=== PATIENT | female | born 1985 | race Asian ===

== ENCOUNTER 2018-11-07 14:16 | Observation (INO) | payer OTHER ==
[~2018-11-07] VITALS: Ht 154.9 cm; Wt 55.8 kg
[2018-11-07] MEDS ORDERED: FERR-252 PO (16:02)
[2018-11-07] MEDS ORDERED: PREN-380 PO (16:02)
== END 2018-11-07 16:10 | disposition home or self-care (01) ==
LOC: MLD 14:16 → MUS 14:16 → EDSTATUS 14:38
PROVIDERS: ADMIT Obstetrics & Gynecology
DX: O99.89 Other specified diseases and conditions complicating pregnancy, childbirth and the puerperium (principal); Z3A.34 34 weeks gestation of pregnancy
CPT/HCPCS: 76815; G0378; Q0092; 59025

== ENCOUNTER 2018-11-14 15:28 | Observation (INO) | payer OTHER ==
[~2018-11-14] VITALS: Ht 154.9 cm; Wt 45.4 kg
[~2018-11-14 15:28] MED LIST: FERR-252 PO; PREN-380 PO
[2018-11-14 15:50] VITALS: BP 93/59
[2018-11-14] MEDS ORDERED: OMEG1CAP21 PO (16:04)
== END 2018-11-14 16:45 | disposition home or self-care (01) ==
LOC: MLD 15:28
PROVIDERS: ADMIT Obstetrics & Gynecology; ATTEND Obstetrics & Gynecology
DX: O99.89 Other specified diseases and conditions complicating pregnancy, childbirth and the puerperium (principal); N13.30 Unspecified hydronephrosis; Z3A.36 36 weeks gestation of pregnancy
CPT/HCPCS: 59025; 76815; G0378; Q0092

== ENCOUNTER 2018-11-19 04:00 | Observation (INO) | payer OTHER ==
[~2018-11-19] VITALS: Ht 154.9 cm; Wt 58.1 kg
[~2018-11-19 04:00] MED LIST changes: +OMEG1CAP21 PO
[2018-11-19 04:13] VITALS: BP 101/66
== END 2018-11-19 05:25 | disposition home or self-care (01) ==
LOC: MLD 04:00
PROVIDERS: ADMIT Obstetrics & Gynecology; ATTEND Obstetrics & Gynecology
DX: O62.9 Abnormality of forces of labor, unspecified (principal); Z3A.36 36 weeks gestation of pregnancy
CPT/HCPCS: 59025; 81000; G0378

== ENCOUNTER 2018-11-21 11:41 | Observation (INO) | payer OTHER ==
[2018-11-21 12:32] VITALS: BP 100/71
== END 2018-11-21 13:23 | disposition home or self-care (01) ==
LOC: MLD 11:41
PROVIDERS: ADMIT Obstetrics & Gynecology; ATTEND Obstetrics & Gynecology
DX: O99.89 Other specified diseases and conditions complicating pregnancy, childbirth and the puerperium (principal); N13.30 Unspecified hydronephrosis; Z3A.36 36 weeks gestation of pregnancy
CPT/HCPCS: 59025; 76815; 81000; G0378; Q0092

== ENCOUNTER 2018-11-28 16:19 | Observation (INO) | payer OTHER ==
[~2018-11-28] VITALS: Ht 154.9 cm; Wt 58.1 kg
== END 2018-11-28 17:32 | disposition home or self-care (01) ==
LOC: MLD 16:19
PROVIDERS: ADMIT Obstetrics & Gynecology; ATTEND Obstetrics & Gynecology
DX: O36.8930 Maternal care for other specified fetal problems, third trimester, not applicable or unspecified (principal); Z3A.00 Weeks of gestation of pregnancy not specified
CPT/HCPCS: 59025; 76815; G0378; Q0092

== ENCOUNTER 2020-11-09 19:10 | Outpatient (CLI) | payer OTHER ==
[2020-11-09 20:16] LABS: BARBITURATE, URINE NEGATIVE ng/ml (NEG <=200); BENZODIAZEPINE, URINE NEGATIVE ng/mL (NEG <=200); CANNABINOID, URINE NEGATIVE ng/mL (NEG <=50); COCAINE, URINE NEGATIVE ng/mL (NEG <=300); OPIATE, URINE NEGATIVE ng/mL (NEG <=2000); PHENCYCLIDINE SCREEN,URINE NEGATIVE ng/mL (NEG <=25)
[2020-11-11 09:07] LABS: HEPATITIS B SURFACE ANTIBODY Reactive (.)
[2020-11-12 15:06] LABS: VARICELLA IGG ANTIBODY 2045 index (Immune >165)
[2020-11-13 12:08] LABS: VARICELLA IGM ANTIBODY <0.91 index (0.00-0.90)
== END 2020-11-09 21:48 | disposition home or self-care (01) ==
LOC: MLB 19:10
PROVIDERS: ATTEND Hospitalist
DX: Z00.00 Encounter for general adult medical examination without abnormal findings (principal)
CPT/HCPCS: 36415; 80305; 86706; 86762; 86765; 86787

== ENCOUNTER 2021-08-24 17:26 | Outpatient (CLI) | payer OTHER ==
[2021-08-24 22:00] LABS: APPEARANCE,URINE CLEAR (CLEAR); BILIRUBIN,URINE NEGATIVE (NEGATIVE); BLOOD, URINE NEGATIVE (NEGATIVE); COLOR,URINE YELLOW (YELLOW); LEUKOCYTE ESTERASE ,URINE NEGATIVE (NEGATIVE); NITRITE, URINE NEGATIVE (NEGATIVE); UGLUCOSE NEGATIVE (NEGATIVE)
[2021-08-24 23:21] LABS: BARBITURATE, URINE NEGATIVE ng/ml (NEG <=200); BENZODIAZEPINE, URINE NEGATIVE ng/mL (NEG <=200); CANNABINOID, URINE NEGATIVE ng/mL (NEG <=50); COCAINE, URINE NEGATIVE ng/mL (NEG <=300); OPIATE, URINE NEGATIVE ng/mL (NEG <=2000); PHENCYCLIDINE SCREEN,URINE NEGATIVE ng/mL (NEG <=25)
[2021-08-25 06:45] LABS: BASOPHILS % (AUTO) 0.5 % (0.0-2.0); EOSINOPHILS # (AUTO) 0.1 K/uL (0-0.4); EOSINOPHILS % (AUTO) 1.3 % (0.0-4.0); HEMATOCRIT 38.8 % (36-48); HEMOGLOBIN 12.7 g/dL (12.0-16.0); LYMPHOCYTES # (AUTO) 1.6 K/uL (2.5-16.5); LYMPHOCYTES % (AUTO) 16.4 % (20.5-51.1); MEAN CORPUSCULAR HEMOGLOBIN 27 pg (27-31); MEAN CORPUSCULAR HGB CONC 33 g/dL (33-37); MEAN CORPUSCULAR VOLUME 81.9 fL (80-94); MONOCYTES # (AUTO) 0.5 K/uL (0.8-1.0); MONOCYTES % (AUTO) 5.2 % (1.7-9.3); NEUTROPHILS # (AUTO) 7.3 K/uL (1.8-7.7); NEUTROPHILS % (AUTO) 76.6 % (42.2-75.2); PLATELET COUNT (AUTO) 283 K/uL (140-450); RED BLOOD CELL COUNT(AUTO) 4.74 MIL/uL (4.20-5.40); RED CELL DISTRIBUTION WIDTH 15.7 % (11.6-13.7); WHITE BLOOD COUNT (AUTO) 9.5 K/uL (4.8-10.8)
[2021-08-26 12:08] LABS: HEPATITIS B SURFACE ANTIGEN Negative (Negative)
== END 2021-08-24 19:32 | disposition home or self-care (01) ==
LOC: MLB 17:26
PROVIDERS: ATTEND Obstetrics & Gynecology
DX: Z36.9 Encounter for antenatal screening, unspecified (principal)
CPT/HCPCS: 36415; 80305; 81003; 85025; 86592; 86702; 86762; 86886; 86900; 86901; 87086; 87340